=== PATIENT | female | born 1970 ===

== ENCOUNTER 2020-03-09 14:05 | Inpatient (IN) | payer OTHER, SELFPAY ==
[2020-03-09 22:51] LABS: Actual Bicarbonate (HCO3a) 25.9 mEq/L (22-28); Base Excess (BEa) 2.3 mEq/L (-2.0 to +3.0); CO2 Tension 35.4 mmHg (35.0-45.0); Calcium, Ionized (arterial) 1.38 mmol/L (1.12-1.30); Carboxyhemoglobin (COHb) 0.3 gm% (0.0-3.0); Hemoglobin (Hb) 6.9 g/dL (12.0-16.0); Potassium - ABG Lab 4.32 mmol/L (3.70-5.30); pH, Arterial 7.48 (7.35-7.45)
[2020-03-09 22:52] LABS: O2 Tension (PaO2), arterial 59.1 mmHg (80.0-100.0); Puncture Site RRA
[2020-03-09] MEDS ORDERED: Ondansetron PF 4 MG/2 ML Vial IVP PRN (23:15)
[2020-03-09] MEDS ORDERED: Ondansetron ODT 4 MG TAB PO PRN (23:15)
[2020-03-09] MEDS ORDERED: Sodium Chloride 0.9% 1,000 ML IV SCH (23:15)
--- NOTE | 2020-03-09 23:32 | PDOC.HHP ---
Hospitalist HPI - History of Present Illness abnormal labs History of Present Illness: history is limited most was obtain from transfer records, no family members were present, patient is non verbal and no previous hospitalization in this institution Case of an 50y/o female with pmhx of htn alcohol abuse drug abuse smoker who had a cva and was left with considerable disabilities including hemiplegia and tracheotomy on MV, intermediate resident who was brought to hospital after labs at the intermediate showed she had leukocytosis with renal failure and hyperkalemia. patient was sent to an ED which diagnosed patient with sepsis secondary to uti renal failure and hyperkalemia, and was transfer to this institution for further a higher level of care given the patients chronic conditions Hospitalist ROS - Review of Systems ROS unobtainable: due to mental status Hospitalist History - Past Medical History Cardiac: reports: HTN Pulmonary: reports: CVA/TIA/stroke - Past Surgical History Past Surgical History: reports: no pertinent history Other Surgical History: unable to asses - Family History Other Family History: unable to asses - Social History Smoking Status: Former smoker - Exam General Appearance: NAD, awake alert Eye: PERRL, anicteric sclera ENT: normocephalic atraumatic, no oropharyngeal lesions Neck: supple, symmetric, no JVD Heart: no murmur, no gallops, no rubs, normal peripheral pulses Heart - other findings: tachycardic Respiratory: CTAB, no wheezes, no rales Gastrointestinal: soft, non-tender, non-distended Extremities: no cyanosis, no clubbing, no edema Skin - other findings: stage 3 - 4 sacral ulcer Neurological: hemiplegia, speech deficit, vision deficit Musculoskeletal: diffuse muscle atrophy Psychiatric: not oriented Hospitalist Results - Labs Lab results: ABG pH 7.48 (7.35-7.45) H 03/09/20 22:40 ABG pCO2 35.4 mmHg (35.0-45.0) 03/09/20 22:40 ABG pO2 59.1 mmHg (80.0-100.0) L* 03/09/20 22:40 Hospitalist H&P A/P - Problem (1) Sepsis Code(s): A41.9 - SEPSIS, UNSPECIFIED ORGANISM Status: Acute (2) UTI (urinary tract infection) Status: Acute (3) Chronic respiratory failure requiring continuous mechanical ventilation through tracheostomy Code(s): J96.10 - CHRONIC RESPIRATORY FAILURE, UNSP W HYPOXIA OR HYPERCAPNIA; Z93.0 - TRACHEOSTOMY STATUS; Z99.11 - DEPENDENCE ON RESPIRATOR [VENTILATOR] STATUS Status: Acute (4) Renal failure Status: Acute (5) Hyperkalemia Code(s): E87.5 - HYPERKALEMIA Status: Acute (6) Anemia Code(s): D64.9 - ANEMIA, UNSPECIFIED Status: Acute (7) History of CVA with residual deficit Code(s): I69.30 - UNSPECIFIED SEQUELAE OF CEREBRAL INFARCTION Status: Acute (8) Hypertension Code(s): I10 - ESSENTIAL (PRIMARY) HYPERTENSION Status: Acute (9) Sacral ulcer Code(s): L98.429 - NON-PRESSURE CHRONIC ULCER OF BACK WITH UNSPECIFIED SEVERITY Status: Acute - Plan Plan: 50y/o female with stated pmhx who comes from intermediate due to renal failure w hyperkalemia and sepsis secondary to uti sepsis - leukocytosis wbc 20, with tachycardia. u/a consistent with uti - started on rocephin 2g iv daily - ivfs - lactid acid 0.9 - f/u blood and urine cultures - will get cxr to r/o other sources of infection - covid test negative renal failure - ivfs - u/a to evaluated sedimentation - nephrology consulted - renal u/s - f/u bmps and u/o hyperkalemia - no ekg changes at the moment - hospital admissions officer consulted - initial K at 7.6 was treated before transfer, will repeat and treat accordingly anemia - likely chronic and multifactorial low mcv but elevated rdw - transfuse at 7 or below - will get iron panel and occult blood hx of cva - continue secondary prophylaxis with asa and statin chronic respiratory failure on MV - adequate abgs - second facing baster consulted - prn duo nebs htn - holding medication for now in the setting of sepsis, start once patient is more stable scaral ulcer stage 3-4 - wound care consulted - ulcer prevention protocol
--- NOTE | 2020-03-09 23:51 | RAD ---
XR Chest 1 View Portable History: Sepsis Comparison: None. Findings: Tracheostomy tube tip sits at level of clavicles. Patient is rotated to the right. Patchy r ight middle lobe and lower lobe airspace opacity. Left lung is relatively clear. No acute osseous abnormality. Multiple radiopacities project over the right chest. Impression: Findings concerning for right middle lobe and lower lobe pneumonia. Follow-up after remov al of the oxygenation hardware.
[2020-03-09] MEDS ORDERED: cefTRIAXone\\ROCEPHIN 2 GM in Sodium Chloride 0.9% 100 ML IVPB SCH (23:59)
[2020-03-10 00:40] LABS: ALT (SGPT) 80 U/L (8-55); AST (SGOT) 51 U/L (5-34); Albumin 2.7 g/dL (3.5-5.0); Alkaline Phosphatase 309 U/L (40-110); Anion Gap 20 mmol/L (10-20); BUN (Urea Nitrogen) 92 mg/dL (7.0-18.7); Bilirubin, Total 0.2 mg/dL (0.2-1.2); Calc. Creatinine Clearance 18 mL/min (70-130); Carbon Dioxide 20 mmol/L (22-29); Chloride 110 mmol/L (98-107); Estimated GFR-MDRD 11; Globulin 5.8 g/dL (2.4-3.5); Glucose 66 mg/dL (70-105); Potassium 4.8 mmol/L (3.5-5.1); Protein, Total 8.5 g/dL (6.0-8.3); Sodium 145 mmol/L (136-145)
[2020-03-10 00:43] LABS: Bilirubin Negative (Negative); Blood, Urine Trace (Negative); Clarity Turbid (Clear); Glucose, Urine (Dipstick) Normal (Negative); Ketone, Urine Negative (Negative); Leukocyte 500 Leu/uL (Negative); Nitrite Negative (Negative); Protein, Urine (Dipstick) 30 mg/dL (Neg-Trace); Specific Gravity, Urine 1.008 (1.002-1.036); Squamous Epithelial 0-3 HPF (0-3); Urobilinogen Normal mg/dL (Less than 2); WBC/HPF Greater than 50 HPF (0-3)
[2020-03-10 00:44] LABS: Bacteria/HPF 1+ HPF (None Seen)
--- NOTE | 2020-03-10 02:18 | PDOC.EVN ---
Event Note - Event Note Event Note: cxr done consistent with multi lobe pneumonia, will change abx therapy to cefepime and vanc. will order mrsa swab and sputum culture
[2020-03-10 03:24] LABS: #Basophils 0.1 thou/uL (0.0-0.2); #Eosinphils 0.7 thou/uL (0.0-0.7); #Monocytes 1.2 thou/uL (0.11-0.59); #Neutrophils 12.6 thou/uL (1.40-6.50); %Basophils 0.4 % (0.0-1.0); %Eosinophils 4.2 % (0.0-10.0); %Lymphocytes 12.1 % (21.0-51.0); %Monocytes 7.4 % (0.0-10.0); Hemoglobin 7.2 g/dL (12.0-16.0); Mean Corpuscular HGB CONC 33.3 g/dL (32.0-36.0); Mean Corpuscular Hemoglobin 27.2 pg (27.0-31.0); Mean Corpuscular Volume 81.6 fL (78.0-98.0); Mean Platelet Volume 7.3 fL (7.4-10.4); Platelet Count 631 thou/uL (130-400); RBC Distribution Width 17.1 % (11.5-14.5); Red Blood Cell (RBC) Count 2.64 mill/uL (4.20-5.40); White Blood Cell (WBC) Count 16.6 thou/uL (4.8-10.8)
[2020-03-10 03:45] LABS: Iron 15 ug/dL (50-170); Iron Binding Capacity, Total 160 mcg/dL (265-497)
[2020-03-10 03:47] LABS: ALT (SGPT) 66 U/L (8-55); AST (SGOT) 40 U/L (5-34); Albumin 2.4 g/dL (3.5-5.0); Alkaline Phosphatase 262 U/L (40-110); Anion Gap 17 mmol/L (10-20); BUN (Urea Nitrogen) 89 mg/dL (7.0-18.7); Bilirubin, Total 0.2 mg/dL (0.2-1.2); Calc. Creatinine Clearance 19 mL/min (70-130); Calcium 10.5 mg/dL (7.8-10.44); Carbon Dioxide 21 mmol/L (22-29); Chloride 111 mmol/L (98-107); Estimated GFR-MDRD 12; Globulin 5.1 g/dL (2.4-3.5); Glucose 70 mg/dL (70-105); Iron 16 ug/dL (50-170); Iron Binding Capacity, Total 160 mcg/dL (265-497); Potassium 4.2 mmol/L (3.5-5.1); Protein, Total 7.5 g/dL (6.0-8.3); Sodium 145 mmol/L (136-145)
[2020-03-10 05:59] LABS: Vancomycin, Random 8.6 ug/mL (See Comment)
[2020-03-10] MEDS ORDERED: Cefepime 2 GM in Sodium Chloride 0.9% 100 ML IVPB SCH ×2 (06:00→08:49)
[2020-03-10] MEDS ORDERED: Vancomycin HCl 750 MG in Sodium Chloride 0.9% 250 ML 250 ML IVPB SCH (06:30)
[2020-03-10] MEDS ORDERED: Dextrose 5% in Water 1,000 ML IV SCH (09:00)
--- NOTE | 2020-03-10 09:14 | ULT ---
BILATERAL RENAL ULTRASOUND: HISTORY: Acute renal insufficiency. FINDINGS: The right kidney measures 11.3 cm in length and the left kidney measures 12.1 cm in length. Minimal bilateral hydronephrosis is seen. No masses or shadowing calculi are noted. There is a Luong cathet er in the urinary bladder. IMPRESSION: Minimal bilateral hydronephrosis. POS: KALYANI
[2020-03-10] MEDS ORDERED: Sodium Bicarbonate 50 MEQ in Sodium Chloride 0.45% 1,000 ML IV SCH (10:00)
[2020-03-10] MEDS: Enoxaparin Sodium 30 MG/0.3 ML SYRINGE SC SCH (11:52)
[2020-03-10 12:46] LABS: Creatinine, Urine 41.22 mg/dL (47-110)
[2020-03-10] MEDS ORDERED: CEFEPIME IVPB PRN (13:56)
--- NOTE | 2020-03-10 15:16 | PDOC.HOSPP ---
- Subjective Encounter Date: 03/10/20 Encounter Time: 14:00 Subjective: awake, not oriented, is not in distress has trach and is on vent - Objective Vital Signs & Weight: Vital Signs (12 hours) Pulse Resp BP 03/10/20 14:54 113 H 121/67 03/10/20 14:00 24 H 03/10/20 12:00 28 H 03/10/20 10:47 124 H 128/76 03/10/20 10:00 25 H 03/10/20 08:47 122 H 123/73 03/10/20 08:00 24 H 03/10/20 06:00 17 03/10/20 04:00 18 Weight Admit Weight 154 lb Weight 154 lb 15.759 oz Most Recent Monitor Data Heart Rate from ECG 119 NIBP 126/75 NIBP BP-Mean 92 Respiration from ECG 14 SpO2 100 I&O: 03/09/20 03/10/20 03/11/20 06:59 06:59 06:59 Intake Total 665 791 Output Total 6994 1625 Balance -5578 -300 Result Diagrams: 03/10/20 03:11 03/10/20 03:11 Additional Labs: Accuchecks 03/10/20 09:43 POC Glucose 116 H Hospitalist ROS - Medication Medications: Active Medications Generic Name Dose Route Start Last Admin Trade Name Chatoq PRN Reason Stop Dose Admin Enoxaparin Sodium 30 mg 03/10/20 09:00 03/10/20 11:52 Lovenox SC 30 mg 0900 GEOVANNA Administration Sodium Bicarbonate 50 meq/ 1,050 mls @ 100 mls/hr 03/10/20 10:00 03/10/20 11: 54 Sodium Chloride IV 03/10/20 22:00 1,050 mls ONE GEOVANNA Administration - Exam General Appearance: ill appearing Eye: anicteric sclera ENT: no oropharyngeal lesions Neck: no JVD Neck - other findings: trach+ Heart: RRR, no gallops Respiratory: no wheezes, rhonchi Gastrointestinal: soft, non-tender, non-distended, normal bowel sounds Gastrointestinal - other findings: peg+ Extremities - other findings: contractures of all extremities Neurological - other findings: has left hemiplegia, but has contractures of all 4 limbs with functional qu Hosp A/P (1) Acute and chronic respiratory failure ([id number]) Code(s): J96.20 - ACUTE AND CHR RESP FAILURE, UNSP W HYPOXIA OR HYPERCAPNIA Status: Acute Qualifiers: Respiratory failure complication: hypoxia and hypercapnia Qualified Code(s) : J96.21 - Acute and chronic respiratory failure with hypoxia; J96.22 - Acute and chronic respiratory failure with hypercapnia (2) SHANNEN (acute kidney injury) Code(s): N17.9 - ACUTE KIDNEY FAILURE, UNSPECIFIED Status: Acute (3) Anemia Code(s): D64.9 - ANEMIA, UNSPECIFIED Status: Chronic (4) History of CVA with residual deficit Code(s): I69.30 - UNSPECIFIED SEQUELAE OF CEREBRAL INFARCTION Status: Chronic (5) Hyperkalemia Code(s): E87.5 - HYPERKALEMIA Status: Resolved (6) Hypertension Code(s): I10 - ESSENTIAL (PRIMARY) HYPERTENSION Status: Chronic Qualifiers: Hypertension type: essential hypertension Qualified Code(s): I10 - Essential (primary) hypertension (7) Sacral ulcer Code(s): L98.429 - NON-PRESSURE CHRONIC ULCER OF BACK WITH UNSPECIFIED SEVERITY Status: Chronic Plan: stage 4 present on admission (8) Sepsis Code(s): A41.9 - SEPSIS, UNSPECIFIED ORGANISM Status: Acute Qualifiers: Sepsis type: sepsis due to unspecified organism Sepsis acute organ dysfunction status: with acute organ dysfunction Severe sepsis acute organ dysfunction type: acute renal failure Severe sepsis shock status: without septic shock (9) UTI (urinary tract infection) Status: Acute Qualifiers: Urinary tract infection type: acute cystitis Hematuria presence: without hematuria Qualified Code(s): N30.00 - Acute cystitis without hematuria (10) Functional quadriplegia Code(s): R53.2 - FUNCTIONAL QUADRIPLEGIA Status: Chronic - Plan Has multiple medical issues in addition to being bed bound, stage 4 sacral decubitus, chronic trach, 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
--- NOTE | 2020-03-10 18:04 | CON ---
DATE OF CONSULTATION: 03/10/2020 SERVICE: Nephrology. REASON FOR CONSULTATION: Renal failure. REQUESTING PHYSICIAN: Dr. Santos. HISTORY OF PRESENT ILLNESS: A 50-year-old female with known history of prior CVA, associated with residual left-sided hemiplegia as well as chronic respiratory failure requiring tracheostomy and mechanical ventilation, [facility] resident, who was brought to the hospital after labs drawn at the [facility] showed elevated potassium and creatinine as well as leukocytosis. The patient was subsequently taken to the ED where diagnosis of sepsis secondary to urinary tract infection as well as acute renal failure and hyperkalemia was made. The patient was noted to have a potassium of 7.2 and was treated in the ED before transfer over here. Of note, the patient is nonverbal and was unable to provide any history. Above history was obtained from review of medical record. Nephrology consult was requested for management of renal failure. Baseline creatinine is unknown at this time. PAST MEDICAL HISTORY: 1. Hypertension. 2. Prior CVA. 3. Left hemiparesis. 4. Chronic respiratory failure status post tracheostomy and on mechanical ventilation. PAST SURGICAL HISTORY: 1. Tracheostomy creation. 2. PEG tube placement. FAMILY HISTORY: Unable to assess due to the patient's condition. SOCIAL HISTORY: The patient used to smoke and drink alcohol, but not currently. ALLERGIES: NO KNOWN DRUG ALLERGY REPORTED. PRIOR TO HOSPITAL MEDICATION: 1. Acetaminophen 325 p.o. every 4 hours p.r.n. 2. Zofran ODT 4 mg q.4 p.r.n. 3. Hydrocodone/acetaminophen 10/325 one tablet q.6 p.r.n. 4. Ipratropium bromide inhalation 0.5 mg nebulization q.6 h. 5. Acetylcysteine 400 mg q.8 h. 6. Ascorbic acid 500 mg p.o. b.i.d. 7. Aspirin 81 mg p.o. daily. 8. Lipitor 40 mg p.o. daily at bedtime. 9. Pepcid 20 mg p.o. b.i.d. 10. Ferrous sulfate 325 mg p.o. daily. 11. Heparin 5000 units subcutaneously b.i.d. 12. Insulin sliding scale b.i.d. 13. Lisinopril 2.5 mg p.o. b.i.d. 14. Metoprolol tartrate 50 mg p.o. b.i.d. 15. Multivitamin with minerals one tablet p.o. daily. 16. Protein supplement 30 mL p.o. daily. REVIEW OF SYSTEMS: Could not be performed due to the patient's condition. PHYSICAL EXAMINATION: VITAL SIGNS: Temperature 99.1, pulse 120, respiratory rate 18, SpO2 of 100% on 50% FiO2, and blood pressure is 157/76. I and O in the last 24 hours showed total intake of 665 with total output of 3150. GENERAL: Chronically ill-looking, middle-aged female, in no obvious distress. Afebrile. Anicteric. Acyanotic. HEENT: Normocephalic and atraumatic. Oral mucosa is dry with chapped lips. NECK: Tracheostomy noted, connected to ventilator. CARDIOVASCULAR: Regular rhythm and rate, but tachycardic. RESPIRATORY: Ventilator transmitted breath sounds heard in all lung zones. GI: Full, soft with normal bowel sounds. Gastric tube is noted in place. UROGENITAL: Luong catheter is in place. MUSCULOSKELETAL: Fixed flexion deformity of the left hand and upper limb noted. Atrophy of both lower extremities with some foot deformity noted. Mild edema of both feet and leg noted as well. No erythema appreciated. SUPERVISOR LIME: The patient is awake, but non-conversational. Left hemiplegia with fixed flexion deformity noted. DIAGNOSTIC DATA: CBC today showed WBC count of 16.6, hemoglobin of 7.2, MCV of 81.6, and platelets of 631. Chemistry today showed sodium 145, potassium 4.2, chloride 111, CO2 of 21, BUN 89, creatinine 3.96, glucose of 970, and calcium 10.5. Total bilirubin 0.2, AST 40, ALT 66, alkaline phosphatase 262, total protein 7.5, albumin 2.4, and globulin 5.1. Procalcitonin is 50. Iron chemistry showed serum iron of 15, TIBC of 160 with iron saturation of 9%. Urinalysis performed yesterday on 03/09 showed light yellow turbid urine with pH of 7.0, specific gravity of 1.008, urine protein of 30, normal glucose, negative ketone, trace blood, negative nitrite, bilirubin. Leukocyte esterase is 500. Microscopy showed 7 to 10 rbc and greater than 50 wbc with 1+ protein. Chest x-ray performed on 03/09 showed finding concerning for right middle lobe and lower lobe pneumonia. ASSESSMENT: 1. Acute renal failure: Most likely due to hemodynamic factors related to intravascular contraction as well as sepsis. Creatinine is beginning to trend downwards with IV fluid therapy. 2. Sepsis. 3. Dehydration with hypernatremia. 4. Hyponatremia: Due to free water deficit. 5. Polyuria is a concern given total output of more than 3000 in less than 12 hours. 6. Suspected polyuria. 7. Presumed urinary tract infection. 8. Hyperkalemia: Resolved. 9. Acute transaminitis: Most likely due to sepsis. 10. Prior cerebrovascular accident with chronic respiratory failure and left hemiplegia, requiring tracheostomy and percutaneous endoscopic gastrostomy tube. 11. Metabolic acidosis. PLAN: 1. We will start IV fluid therapy with sodium bicarb containing fluid. 2. We will also increase free water flushes via the PEG tube to correct hypernatremia. 3. We will also get urine electrolytes as well as urine protein creatinine ratio. 4. We will monitor input and output to ascertain otherwise presence of polyuria. 5. Agree with tube feed placement. 6. Antibiotics for possible pneumonia as well as urinary tract infection as per primary attending. 7. Further treatment to follow depending on hospital course. 8. We will also get renal ultrasound. Job ID: [id number]
--- NOTE | 2020-03-10 19:12 | CON ---
DATE OF CONSULTATION: 03/10/2020 HISTORY OF PRESENT ILLNESS: Kait Solis is a 50-year-old female. Apparently , she had a cerebrovascular accident at some point. She was transferred here from [place]. She is nonverbal. She has a tracheostomy. The nurses tell me she is ventilator dependent, but I do not get that from the admission notes. She does have a fairly massive decubitus ulcer on presentation. She has a history of drug and alcohol abuse. FAMILY HISTORY: Unknown. SOCIAL HISTORY: Unknown. PHYSICAL EXAMINATION: GENERAL: She has wandering eye movements, does not make any prolonged eye contact. VITAL SIGNS: Heart rate in the 120s, respiratory rate in the teens, blood pressure is 128/76. NECK: She has tracheostomy in place. LUNGS: Remarkable for coarse equal breath sounds. She is not wheezing. HEART: Regular rhythm. ABDOMEN: Soft. EXTREMITIES: Without asymmetry or edema. LABORATORY DATA: White count 16.6, hemoglobin 7.2, platelets 631, MCV is 81. 1 unit of packed cells was ordered. Sodium 145, potassium 4.2, chloride 111, bicarb 21, BUN 89, creatinine 3.96. Urinalysis was remarkable for 7 to 10 red cells, greater than 50 white cells. I suspect she has a chronic indwelling Luong. Blood gas showed a pH 7.48, pCO2 of , pO2 of 59 with a mechanical rate of 15. Mechanical rate has been turned down. IMPRESSION: [id number] kidney disease with hypotension apparently on presentation. Unless there is positive blood cultures that could call back from [place], I would think it would be more likely that she is intravascularly volume depleted. I suspect we will see gradual improvement of renal function with hydration. Renal ultrasound was ordered by the organ pipe voicer, which did not show small kidneys. There was minimal bilateral hydronephrosis, which makes me wonder whether or not a Luong has been plugged up. There is no other reason for a 50-year-old female who has hydronephrosis when renal stones are not seen. Noncontrast CT would answer that question, but I doubt she has bilateral ureteral calculi. We will decrease ventilatory support while she is here. We will try to get more information. It is extremely difficult to take care of someone in this situation with such limited information. Critical care time 30 min. Job ID: [id number] MTDD
[2020-03-10] MEDS: Acetaminophen 325 MG TAB PO PRN (21:24)
[2020-03-11 05:51] LABS: Vancomycin, Random 14.3 ug/mL (See Comment)
[2020-03-11] MEDS ORDERED: Vancomycin 1 GM in Premix Bag 1 BAG IVPB SCH ×2 (06:00→06:15)
[2020-03-11 08:04] LABS: Hemoglobin 7.6 g/dL (12.0-16.0); Mean Corpuscular HGB CONC 33.7 g/dL (32.0-36.0); Mean Corpuscular Hemoglobin 28.2 pg (27.0-31.0); Mean Corpuscular Volume 83.6 fL (78.0-98.0); Mean Platelet Volume 6.7 fL (7.4-10.4); Platelet Count 631 thou/uL (130-400); RBC Distribution Width 17.3 % (11.5-14.5); Red Blood Cell (RBC) Count 2.68 mill/uL (4.20-5.40); White Blood Cell (WBC) Count 17.9 thou/uL (4.8-10.8)
[2020-03-11] MEDS: Enoxaparin Sodium 30 MG/0.3 ML SYRINGE SC SCH (08:12)
[2020-03-11] MEDS: Cefepime 1 GM in Sodium Chloride 0.9% 100 ML IVPB SCH ×2 (08:12→20:13)
[2020-03-11 08:27] LABS: Phosphorus 4.2 mg/dL (2.3-4.7)
[2020-03-11 08:34] LABS: ALT (SGPT) 48 U/L (8-55); AST (SGOT) 23 U/L (5-34); Albumin 2.6 g/dL (3.5-5.0); Alkaline Phosphatase 227 U/L (40-110); Anion Gap 14 mmol/L (10-20); BUN (Urea Nitrogen) 48 mg/dL (7.0-18.7); Bilirubin, Total Less than 0.2 mg/dL (0.2-1.2); Calc. Creatinine Clearance 47 mL/min (70-130); Calcium 10.3 mg/dL (7.8-10.44); Carbon Dioxide 24 mmol/L (22-29); Chloride 115 mmol/L (98-107); Estimated GFR-MDRD 32; Globulin 5.3 g/dL (2.4-3.5); Glucose 105 mg/dL (70-105); Magnesium 1.2 mg/dL (1.6-2.6); Potassium 3.2 mmol/L (3.5-5.1); Protein, Total 7.9 g/dL (6.0-8.3); Sodium 150 mmol/L (136-145)
--- NOTE | 2020-03-11 10:02 | PRG ---
DATE OF SERVICE: 03/11/2020 SUBJECTIVE: Kait Solis remains mechanically ventilated. With pressure support, her tidal volumes are in the 250 to 300 mL range. OBJECTIVE: VITAL SIGNS: Respiratory rates in low 30s. LUNGS: Remarkable for coarse and equal breath sounds. HEART: Regular rhythm. ABDOMEN: Soft. LABORATORY DATA: White count 17.9, hemoglobin 7.6, she will receive another unit of packed cells, platelets 631. Sodium 150, potassium 3.2, chloride 115, bicarb 24 , BUN 48, and creatinine is down to 1.69 from 4.29. IMPRESSION: 1. Severe intravascular volume depletion. She will be switched to D5 today. Her renal function is returning towards her baseline. 2. Hyperosmolar state secondary to hyperchloremia, hypernatremia and intravascular volume depletion. D5W at 100 mL an hour has been ordered. 3. Hypoalbuminemia. 4. Very large decubitus ulcer. Surgery will be asked to look at this. Obviously, this is a chronic problem. 5. History of central nervous system disaster, leading her bedridden with a trach and PEG in place. I was told she is chronically ventilated, but I would doubt that. We do need more medical records. We will continue with supportive care. Critical care time was 35 min. Job ID: [id number] MTDD
[2020-03-11] MEDS ORDERED: Magnesium Sulfate 4 GM in Sodium Chloride 0.9% 250 ML 250 ML IVPB SCH (10:30)
[2020-03-11] MEDS: Acetaminophen 650 MG Suppository PR PRN (11:01)
[2020-03-11] MEDS: Dextrose 5% in Water 1,000 ML IV SCH ×2 (11:02→23:35)
--- NOTE | 2020-03-11 16:01 | PRG ---
DATE OF SERVICE: 03/11/2020 SERVICE: Nephrology. SUBJECTIVE: A 50-year-old female, [facility] resident with CVA requiring craniectomy as well as tracheostomy and PEG tube placement about 3 months ago, now admitted due to worsening renal function and hyperkalemia, for which she has been seen by Nephrology. The patient also was found to have hypernatremia as well as sepsis. Also was found to have mild hydronephrosis, hence required Luong catheter placement. The patient remained on conversational and mechanically ventilated. Having some fever intermittently. OBJECTIVE: VITAL SIGNS: Temperature 100.9, heart rate 132, respiratory rate , SpO2 of 100% on 50% FiO2, blood pressure is 128/109. I and O in the last 24 hours showed total intake of 3542 with total output of 3595. GENERAL: Comfortable middle-aged female, in no obvious distress. HEENT: Left frontoparietal craniectomy noted. Oral mucosa is moist. NECK: No JVD. Tracheostomy noted, connected to ventilator. RESPIRATORY: Ventilator transmitted breath sounds noted. The patient is tachypneic. GI: Full, soft with normal bowel sounds. Gastric tube noted. UROGENITAL: Luong catheter is in place draining urine. EXTREMITIES: No obvious edema of the extremities noted. Fixed flexion deformity of the left upper limb and hand noted. INDUSTRIAL ENGINEERING TECHNOLOGIST: The patient is awake, but non-conversational. DIAGNOSTIC DATA: CBC showed WBC count of 17.9, hemoglobin of 7.6, MCV of 83.6, platelet of 631. Chemistry showed sodium 150, potassium 3.2, chloride 115, CO2 of 24, BUN 48, creatinine 1.69, glucose 105, calcium 10.3, magnesium 1.2, phosphorus 4.2, total bilirubin less than 2, AST 23, ALT 48, alkaline phosphatase 227, total protein 7.9, albumin 2.6. Urine osmolality is 423 while serum osmolality was 328. ASSESSMENT: 1. Acute kidney injury: Multifactorial from obstructive uropathy as well as a hemodynamic factors related to sepsis and severe dehydration. Renal function has improved with creatinine trending down from 4.29 on admission to 1.69 today. 2. Metabolic acidosis, markedly improved, due to sepsis as well as dehydration and then acute kidney injury, improving with alkali therapy. 3. Hypernatremia: This seems to be multifactorial from inadequate free water intake, to excessive losses in the kidney. Post obstructive diuresis is a concern as well as diabetic insipidus. The patient has had a brain injury requiring a craniectomy. 4. Polyuria: Etiology is unclear. Central diabetic insipidus and/or nephrogenic insipidus related to acute kidney injury with possible contribution from postobstructive diuresis. The patient made more than 3 L of urine in the last two days. Urine osmolality of 423 in the phase of serum osmolality of 328, though inadequate that showed evidence of some ADH activity. Partial diabetic insipidus cannot be ruled out. Postoperative diuresis may be contributory. 5. Severe hypomagnesemia: This can also lead to diabetic insipidus. 6. Hypokalemia, most likely related to hypomagnesemia. This can also lead to diabetic insipidus. 7. Marked thrombocytopenia: Most likely related to iron deficiency and sepsis. 8. Protein-calorie malnutrition with hypoalbuminemia. PLAN: 1. We will increase free water intake via the NG tube. We will also add free water in the form of IV. The patient is now on 5% dextrose. 2. We will replete serum potassium with potassium chloride. 3. We will also repeat replete serum magnesium with 4 g of magnesium sulfate. 4. We will continue to monitor intake and output. 5. We will recheck BMP later this afternoon with a view to starting some crystalloid to prevent worsening dehydration and renal failure. Antibiotic therapy for sepsis as per primary attending. Job ID: [id number]
[2020-03-11 16:33] LABS: Chloride 91 mmol/L (98-107)
[2020-03-11 16:36] LABS: Anion Gap 9 mmol/L (10-20); Carbon Dioxide 20 mmol/L (22-29)
[2020-03-11 16:37] LABS: Calc. Creatinine Clearance 48 mL/min (70-130); Estimated GFR-MDRD 33
[2020-03-11 16:38] LABS: BUN (Urea Nitrogen) 29 mg/dL (7.0-18.7)
[2020-03-11 17:59] LABS: Glucose 125 mg/dL (70-105); Potassium 4.3 mmol/L (3.5-5.1); Sodium 150 mmol/L (136-145)
--- NOTE | 2020-03-11 18:23 | PDOC.HOSPP ---
- Subjective Encounter Date: 03/11/20 Encounter Time: 11:35 Subjective: awake, not oriented, not in distress is on vent - Objective Vital Signs & Weight: Vital Signs (12 hours) Pulse Resp BP Pulse Ox 03/11/20 16:00 28 H 03/11/20 15:21 110 H 136/78 03/11/20 14:00 30 H 03/11/20 12:00 29 H 03/11/20 10:54 123 H 151/99 H 03/11/20 10:00 38 H 03/11/20 08:00 44 H 92 L 03/11/20 07:58 124 H Weight Admit Weight 154 lb Weight 160 lb 0.889 oz Most Recent Monitor Data Heart Rate from ECG 105 NIBP 148/102 NIBP BP-Mean 117 Respiration from ECG 31 SpO2 100 I&O: 03/10/20 03/11/20 03/12/20 06:59 06:59 06:59 Intake Total 665 3542 951 Output Total 0800 3595 1355 Balance -2485 -53 -404 Result Diagrams: 03/11/20 07:50 03/11/20 16:10 Hospitalist ROS - Medication Medications: Active Medications Generic Name Dose Route Start Last Admin Trade Name Freq PRN Reason Stop Dose Admin Acetaminophen 650 mg 03/09/20 23:15 03/10/20 21:24 Tylenol PO 650 mg Q4H PRN Administration Headache/Fever/Mild Pain (1-3) Acetaminophen 650 mg 03/09/20 23:15 03/11/20 11:01 Tylenol NH 650 mg Q4H PRN Administration Headache/Fever/Mild Pain (1-3) Enoxaparin Sodium 30 mg 03/10/20 09:00 03/11/20 08:12 Lovenox SC 30 mg 0900 GEOVANNA Administration Cefepime HCl 1 gm/ Sodium 100 mls @ 200 mls/hr 03/11/20 09:00 03/11/20 08:12 Chloride IVPB 100 mls Q12HR GEOVANNA Administration Dextrose/Water 1,000 mls @ 100 mls/hr 03/11/20 11:00 03/11/20 11:02 D5w IV 1,000 mls .Q10H GEOVANNA Administration - Exam General Appearance: ill appearing Eye: PERRL, anicteric sclera ENT: no oropharyngeal lesions, dry oral mucosa Neck: no JVD Neck - other findings: trach+ Heart: RRR, no murmur Respiratory: no wheezes, no rales Gastrointestinal: soft, non-tender, normal bowel sounds Gastrointestinal - other findings: peg+ Extremities - other findings: contractures of all extre, b/l foot drop Neurological: hemiplegia Hosp A/P (1) Acute and chronic respiratory failure ([id number]) Code(s): J96.20 - ACUTE AND CHR RESP FAILURE, UNSP W HYPOXIA OR HYPERCAPNIA Status: Acute Qualifiers: Respiratory failure complication: hypoxia and hypercapnia Qualified Code(s) : J96.21 - Acute and chronic respiratory failure with hypoxia; J96.22 - Acute and chronic respiratory failure with hypercapnia (2) SHANNEN (acute kidney injury) Code(s): N17.9 - ACUTE KIDNEY FAILURE, UNSPECIFIED Status: Acute (3) Anemia Code(s): D64.9 - ANEMIA, UNSPECIFIED Status: Chronic (4) History of CVA with residual deficit Code(s): I69.30 - UNSPECIFIED SEQUELAE OF CEREBRAL INFARCTION Status: Chronic (5) Hyperkalemia Code(s): E87.5 - HYPERKALEMIA Status: Resolved (6) Hypertension Code(s): I10 - ESSENTIAL (PRIMARY) HYPERTENSION Status: Chronic Qualifiers: Hypertension type: essential hypertension Qualified Code(s): I10 - Essential (primary) hypertension (7) Sacral ulcer Code(s): L98.429 - NON-PRESSURE CHRONIC ULCER OF BACK WITH UNSPECIFIED SEVERITY Status: Chronic (8) Sepsis Code(s): A41.9 - SEPSIS, UNSPECIFIED ORGANISM Status: Acute Qualifiers: Sepsis type: sepsis due to unspecified organism Sepsis acute organ dysfunction status: with acute organ dysfunction Severe sepsis acute organ dysfunction type: acute renal failure Severe sepsis shock status: without septic shock (9) UTI (urinary tract infection) Status: Acute Qualifiers: Urinary tract infection type: acute cystitis Hematuria presence: without hematuria Qualified Code(s): N30.00 - Acute cystitis without hematuria (10) Functional quadriplegia Code(s): R53.2 - FUNCTIONAL QUADRIPLEGIA Status: Chronic (11) Severe protein-calorie malnutrition Code(s): E43 - UNSPECIFIED SEVERE PROTEIN-CALORIE MALNUTRITION Status: Acute (12) FTT (failure to thrive) in adult Status: Acute - Plan Has multiple medical issues in addition to being bed bound, stage 4 sacral decubitus, chronic trach, 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 CM for help with transfer back to snf likely in 24 -36hrs if cleared by . D/w her pcp ([phone]), I have texted his PA NOA Hogan [phone] (will try to get more history from the PA as pcp is not aware of full details). Per the brother, sustained massive cva in November of this year and had likely decompression done and since then has been on ventilator despite multiple attempts at weaning (he even mentions that she is on cpap setting for the most part), she also got rehospitalized 2 more times for small cva's. She has started to open her eyes from 1 week now. await final culture results poor prognosis
[2020-03-12 04:43] LABS: ALT (SGPT) 35 U/L (8-55); AST (SGOT) 19 U/L (5-34); Albumin 2.3 g/dL (3.5-5.0); Alkaline Phosphatase 192 U/L (40-110); Anion Gap 9 mmol/L (10-20); BUN (Urea Nitrogen) 27 mg/dL (7.0-18.7); Bilirubin, Total 0.2 mg/dL (0.2-1.2); Calc. Creatinine Clearance 83 mL/min (70-130); Calcium 9.6 mg/dL (7.8-10.44); Carbon Dioxide 27 mmol/L (22-29); Chloride 108 mmol/L (98-107); Estimated GFR-MDRD 63; Glucose 121 mg/dL (70-105); Potassium 3.1 mmol/L (3.5-5.1); Protein, Total 7.3 g/dL (6.0-8.3); Sodium 141 mmol/L (136-145)
[2020-03-12 05:12] LABS: Band 13 % (5-11); Eosinophils 4 % (0-10); Hemoglobin 7.5 g/dL (12.0-16.0); Lymphocytes 12 % (21-51); MDiff Complete? YES; Mean Corpuscular HGB CONC 32.6 g/dL (32.0-36.0); Mean Corpuscular Hemoglobin 27.5 pg (27.0-31.0); Mean Corpuscular Volume 84.2 fL (78.0-98.0); Mean Platelet Volume 6.8 fL (7.4-10.4); Monocytes 3 % (0-10); Neutrophil 68 % (42-75); Platelet Count 542 thou/uL (130-400); RBC Distribution Width 16.9 % (11.5-14.5); Red Blood Cell (RBC) Count 2.74 mill/uL (4.20-5.40); White Blood Cell (WBC) Count 16.7 thou/uL (4.8-10.8)
[2020-03-12] MEDS: Vancomycin 1 GM in Premix Bag 1 BAG IVPB SCH (05:34)
[2020-03-12] MEDS: Dextrose 5% in Water 1,000 ML IV SCH ×2 (05:40→06:12)
[2020-03-12] MEDS: Acetaminophen 650 MG Suppository PR PRN (06:01)
--- NOTE | 2020-03-12 07:47 | RAD ---
PORTABLE CHEST: DATE; 03/12/2020. PROVIDED CLINICAL HISTORY: Respiratory insufficiency. FINDINGS: Comparison 03/09/2020. Cardiac silhouette now appears enlarged. Some of this may be projectional. I nterval development of diffuse right hemithoracic airspace disease and probable patchy left perihilar airspace disease. No pleural fluid or pneumothorax apparent. Tracheostomy appliance is again seen in similar position. IMPRESSION: Development of conspicuous right and subtle left airspace disease. POS: RAMIREZ
[2020-03-12] MEDS: Enoxaparin Sodium 30 MG/0.3 ML SYRINGE SC SCH (08:02)
[2020-03-12] MEDS: Cefepime 1 GM in Sodium Chloride 0.9% 100 ML IVPB SCH ×2 (08:05→19:59)
[2020-03-12] MEDS ORDERED: Dextrose 5% in Water 1,000 ML IV SCH (08:34)
--- NOTE | 2020-03-12 11:30 | PRG ---
DATE OF SERVICE: 03/12/2020 SERVICE: Nephrology. SUBJECTIVE: A 50-year-old female with prior CVA associated with chronic respiratory failure requiring trach and PEG, who was admitted due to abnormal labs of elevated creatinine, hyperkalemia, and others. The patient had developed tachycardia, tachypnea, and fever yesterday, but that has subsided today. She looks more comfortable. The patient is non-conversational, but regrets. OBJECTIVE: VITAL SIGNS: Temperature 99.1, pulse 85, respiratory rate 25, SpO2 of 100%, blood pressure is 129/85. I and O in the last 24 hours show total intake of 6909 with total output of 2130. GENERAL: Comfortable middle-aged female, in no obvious distress. The patient is non-conversational. HEENT: Left craniectomy noted. Oral mucosa is moist. NECK: Tracheostomy noted. No JVD appreciated. CARDIOVASCULAR: Regular rhythm and rate with normal heart sounds 1 and 2. RESPIRATORY: Fair air entry bilaterally with scattered transmitted breath sounds. The patient is on the ventilator. GI: Full, soft, and nondistended with normal bowel sounds. Gastric tube noted. UROGENITAL: Luong catheter is in place. MUSCULOSKELETAL: She has flexion deformity of the upper limbs noted, especially on the left side. Quadriparesis also noted. No edema appreciated. Diffuse muscular atrophy noted. CHEMICAL HANDLER: The patient is awake. She regrets, but non-conversational. DIAGNOSTIC DATA: CBC showed WBC count of 16.7, hemoglobin of 7.5, MCV of 84.2, platelet of 542. Chemistry showed sodium 141, potassium 3.1, chloride 108, CO2 of 27, BUN 27, creatinine 0.95, glucose 121, calcium 9.6. Magnesium is 1.7. Total bilirubin is 0.2, AST 19, ALT 35, alkaline phosphatase 192, total protein 7.3, albumin 2.3. Sputum culture grew gram-negative, which is thought to be moderate normal respiratory lyla. Urine culture grew Proteus mirabilis. ASSESSMENT: 1. Acute kidney injury: Seems to be due to hemodynamic factors related to sepsis and volume contraction. Contribution from obstructive uropathy cannot be ruled out. Markedly improved with creatinine down to 0.95. 2. Presume obstructive uropathy: Relieved with insertion of urinary catheter. The patient with quadriparesis from prior stroke is at increased risk of neurogenic bladder. Ultrasound performed after more than 24 hours of admission showed mild bilateral hydronephrosis with Luong catheter in the bladder. This is suggestive of resolving bladder dilatation with mild hydronephrosis. 3. Hypokalemia: Due to poor intake and GI and losses. 4. Hypernatremia: Due to free water deficit. Resolved with aggressive IV and gastric free water provision. 5. Sepsis: Improved. 6. Chronic respiratory failure, on ventilator via tracheostomy. 7. Decubitus ulcer. PLAN: 1. We will discontinue dextrose infusion in view of resolved hypernatremia. We will, however, continue to provide free water via the gastric tube. That was actually escalated to 300 mL every 2 hours. We will continue same and repeat BMP in 6 hours and adjust treatment as indicated. 2. We will replete serum potassium with potassium chloride. 3. We will also start magnesium supplementation. 4. Antibiotics and other treatment as per primary attending. 5. The patient can be discharged from Nephrology point of view if deemed stable for discharge. We will continue to follow and adjust treatment if the patient is still hospitalized. Job ID: [id number]
--- NOTE | 2020-03-12 13:12 | PRG ---
DATE OF SERVICE: 03/12/2020 Kait Solis has her eyes open. She is not distressed. With decreased ventilatory support, she became tachypneic. With increasing her pressure support to 15, her tachypnea went away yesterday as did her tachycardia. Respiratory rates in the 20s, FiO2 is 40, heart rate in the 70s, blood pressure 162/99. Intake and outputs positive 4779. Her PEG volume replacement was increased today, but I believe that this is too much volume replacement for a PEG feeding in somebody that is supine and unable to protect her airway adequately. This totaled almost 3600 mL per day. I have continue with her IV fluids for now. Her tube feeds and water supplements can continue through her PEG, but at a lower rate in my opinion. Overall, she appears to be stable for transfer back to the [facility], where she has been residing. White count 16.7, hemoglobin 7.5, platelets 542. Creatinine is down to 0.95, which is likely close to her baseline. Potassium is 3.1. Her decubitus ulcer is not felt it needs surgery per Wound Care. She is stable for transfer back to her hospital. Critical care time, 30 minutes. Job ID: [id number]
--- NOTE | 2020-03-12 13:56 | PDOC.HOSPP ---
- Subjective Encounter Date: 03/12/20 Encounter Time: 10:10 Subjective: awakens to touch, not oriented is not in distress - Objective Vital Signs & Weight: Vital Signs (12 hours) Pulse Resp BP Pulse Ox 03/12/20 12:00 22 H 03/12/20 10:43 74 03/12/20 10:00 30 H 03/12/20 08:25 88 155/97 H 03/12/20 08:00 20 98 03/12/20 06:00 21 H 03/12/20 04:00 24 H 03/12/20 03:23 90 123/78 03/12/20 02:00 34 H Weight Admit Weight 154 lb Weight 161 lb 2.526 oz Most Recent Monitor Data Heart Rate from ECG 87 NIBP 150/104 NIBP BP-Mean 119 Respiration from ECG 25 SpO2 100 I&O: 03/11/20 03/12/20 03/13/20 06:59 06:59 06:59 Intake Total 3542 6909 90 Output Total 3590 2130 415 Balance -53 4779 -325 Result Diagrams: 03/12/20 03:53 03/12/20 03:53 Hospitalist ROS - Medication Medications: Active Medications Generic Name Dose Route Start Last Admin Trade Name Freq PRN Reason Stop Dose Admin Acetaminophen 650 mg 03/09/20 23:15 03/10/20 21:24 Tylenol PO 650 mg Q4H PRN Administration Headache/Fever/Mild Pain (1-3) Acetaminophen 650 mg 03/09/20 23:15 03/12/20 06:01 Tylenol [place] 650 mg Q4H PRN Administration Headache/Fever/Mild Pain (1-3) Enoxaparin Sodium 30 mg 03/10/20 09:00 03/12/20 08:02 Lovenox SC 30 mg 0900 GEOVANNA Administration Cefepime HCl 1 gm/ Sodium 100 mls @ 200 mls/hr 03/11/20 09:00 03/12/20 08:05 Chloride IVPB 100 mls Q12HR GEOVANNA Administration Vancomycin HCl 1 gm/ Device 200 mls @ 200 mls/hr 03/12/20 06:00 03/12/20 05: 34 IVPB 200 mls 0600 GEOVANNA Administration Potassium Chloride 40 meq 03/12/20 06:15 03/12/20 12:00 Klor-Con PER TUBE 03/12/20 18:16 40 meq Q6H GEOVANNA Administration - Exam General Appearance: ill appearing Eye: PERRL, anicteric sclera ENT: no oropharyngeal lesions, dry oral mucosa Neck: supple, no JVD Neck - other findings: trach Heart: RRR, no murmur Respiratory: no wheezes, no rales, rhonchi Gastrointestinal: soft, non-tender, non-distended, normal bowel sounds Gastrointestinal - other findings: peg+ Extremities: no edema Extremities - other findings: b/l foot drop with all limb contractures Hosp A/P (1) Acute and chronic respiratory failure ([id number]) Code(s): J96.20 - ACUTE AND CHR RESP FAILURE, UNSP W HYPOXIA OR HYPERCAPNIA Status: Acute Qualifiers: Respiratory failure complication: hypoxia and hypercapnia Qualified Code(s) : J96.21 - Acute and chronic respiratory failure with hypoxia; J96.22 - Acute and chronic respiratory failure with hypercapnia (2) SHANNEN (acute kidney injury) Code(s): N17.9 - ACUTE KIDNEY FAILURE, UNSPECIFIED Status: Resolved (3) Anemia Code(s): D64.9 - ANEMIA, UNSPECIFIED Status: Chronic (4) History of CVA with residual deficit Code(s): I69.30 - UNSPECIFIED SEQUELAE OF CEREBRAL INFARCTION Status: Chronic (5) Hyperkalemia Code(s): E87.5 - HYPERKALEMIA Status: Resolved (6) Hypertension Code(s): I10 - ESSENTIAL (PRIMARY) HYPERTENSION Status: Chronic Qualifiers: Hypertension type: essential hypertension Qualified Code(s): I10 - Essential (primary) hypertension (7) Sacral ulcer Code(s): L98.429 - NON-PRESSURE CHRONIC ULCER OF BACK WITH UNSPECIFIED SEVERITY Status: Chronic (8) Sepsis Code(s): A41.9 - SEPSIS, UNSPECIFIED ORGANISM Status: Resolved Qualifiers: Sepsis type: sepsis due to unspecified organism Sepsis acute organ dysfunction status: with acute organ dysfunction Severe sepsis acute organ dysfunction type: acute renal failure Severe sepsis shock status: without septic shock (9) UTI (urinary tract infection) Status: Acute Qualifiers: Urinary tract infection type: acute cystitis Hematuria presence: without hematuria Qualified Code(s): N30.00 - Acute cystitis without hematuria (10) Functional quadriplegia Code(s): R53.2 - FUNCTIONAL QUADRIPLEGIA Status: Chronic (11) Severe protein-calorie malnutrition Code(s): E43 - UNSPECIFIED SEVERE PROTEIN-CALORIE MALNUTRITION Status: Acute (12) FTT (failure to thrive) in adult Status: Acute - Plan Has multiple medical issues in addition to being bed bound, stage 4 sacral decubitus, chronic trach, 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 CM for help with transfer back to snf today, d/w and is cleared for dc. D/w her pcp ([phone]), and his PA NOA Hogan [phone]. The info below was confirmed to be true Per the brother, sustained massive cva in November of this year and had likely decompression done and since then has been on ventilator despite multiple attempts at weaning, she also got rehospitalized 2 more times for small cva's. She has started to open her eyes from 1 week now. await final culture results poor prognosis May dc anytime to medical resort in [place]
[2020-03-12 14:36] VITALS: BMI 31.4
[2020-03-12 14:41] LABS: Anion Gap 11 mmol/L (10-20); BUN (Urea Nitrogen) 20 mg/dL (7.0-18.7); Calc. Creatinine Clearance 93 mL/min (70-130); Calcium 9.6 mg/dL (7.8-10.44); Carbon Dioxide 25 mmol/L (22-29); Chloride 107 mmol/L (98-107); Estimated GFR-MDRD 71; Glucose 105 mg/dL (70-105); Potassium 3.9 mmol/L (3.5-5.1); Sodium 139 mmol/L (136-145)
[2020-03-13 04:09] LABS: Anion Gap 10 mmol/L (10-20); BUN (Urea Nitrogen) 14 mg/dL (7.0-18.7); Band 16 % (5-11); Calc. Creatinine Clearance 110 mL/min (70-130); Calcium 9.2 mg/dL (7.8-10.44); Carbon Dioxide 23 mmol/L (22-29); Chloride 106 mmol/L (98-107); Eosinophils 5 % (0-10); Estimated GFR-MDRD 86; Glucose 100 mg/dL (70-105); Hemoglobin 7.5 g/dL (12.0-16.0); Lymphocytes 16 % (21-51); MDiff Complete? YES; Magnesium 1.3 mg/dL (1.6-2.6); Mean Corpuscular HGB CONC 33.6 g/dL (32.0-36.0); Mean Corpuscular Hemoglobin 28.1 pg (27.0-31.0); Mean Corpuscular Volume 83.7 fL (78.0-98.0); Mean Platelet Volume 6.5 fL (7.4-10.4); Metamyelocyte 1 % (0-0); Monocytes 2 % (0-10); Neutrophil 59 % (42-75); Platelet Count 535 thou/uL (130-400); Platelet Morphology Comment Appears Increased; Potassium 3.9 mmol/L (3.5-5.1); RBC Distribution Width 17.1 % (11.5-14.5); Red Blood Cell (RBC) Count 2.66 mill/uL (4.20-5.40); Sodium 135 mmol/L (136-145); White Blood Cell (WBC) Count 13.4 thou/uL (4.8-10.8)
[2020-03-13] MEDS: Vancomycin 1 GM in Premix Bag 1 BAG IVPB SCH (06:32)
[2020-03-13] MEDS ORDERED: Magnesium Sulfate 4 GM in Sodium Chloride 0.9% 250 ML 250 ML IVPB SCH (07:00)
[2020-03-13 08:20] LABS: Actual Bicarbonate (HCO3a) 23.1 mEq/L (22-28); Base Excess (BEa) -0.2 mEq/L (-2.0 to +3.0); CO2 Tension 32.1 mmHg (35.0-45.0); Calcium, Ionized (arterial) 1.27 mmol/L (1.12-1.30); Carboxyhemoglobin (COHb) 0.2 gm% (0.0-3.0); Hemoglobin (Hb) 8.8 g/dL (12.0-16.0); O2 Tension (PaO2), arterial 99.9 mmHg (80.0-100.0); Potassium - ABG Lab 3.74 mmol/L (3.70-5.30); Puncture Site LRA; pH, Arterial 7.48 (7.35-7.45)
[2020-03-13 08:21] LABS: ALV-art Gradient 145.175 (0-20)
--- NOTE | 2020-03-13 08:47 | RAD ---
PORTABLE CHEST: DATE: 03/13/2020. PROVIDED CLINICAL HISTORY: Respiratory insufficiency. FINDINGS: Comparison 03/12/2020. Allowing for differences in positioning, significant interval change with respect to the prior examin ation. IMPRESSION: As above. POS: RAMIREZ
[2020-03-13] MEDS: Acetaminophen 325 MG TAB PO PRN (09:15)
[2020-03-13] MEDS: Cefepime 1 GM in Sodium Chloride 0.9% 100 ML IVPB SCH (09:15)
[2020-03-13] MEDS: Enoxaparin Sodium 30 MG/0.3 ML SYRINGE SC SCH (09:15)
[2020-03-13 11:18] VITALS: BP 151/84
[2020-03-13] MEDS ORDERED: Diazepam 10 MG/2 ML SYRINGE IVP SCH (12:45)
--- NOTE | 2020-03-13 13:17 | PDOC.HOSPP ---
- Subjective Encounter Date: 03/13/20 Encounter Time: 12:00 Subjective: awake, on vent, is not in distress - Objective Vital Signs & Weight: Vital Signs (12 hours) Temp Pulse Resp BP 03/13/20 11:16 101 H 151/84 H 03/13/20 10:00 38 H 03/13/20 08:04 97 145/97 H 03/13/20 08:00 98.4 F 44 H 03/13/20 06:00 46 H 03/13/20 04:00 98.9 F 47 H 03/13/20 03:51 104 H 164/118 H 03/13/20 02:00 40 H 03/13/20 01:28 99 174/101 H Weight Admit Weight 154 lb Weight 166 lb 7.184 oz Most Recent Monitor Data Heart Rate from ECG 65 NIBP 151/84 NIBP BP-Mean 106 Respiration from ECG 21 SpO2 100 I&O: 03/12/20 03/13/20 03/14/20 06:59 06:59 06:59 Intake Total 0902 4487 110 Output Total 2130 2967 750 Balance 4779 1520 -640 Result Diagrams: 03/13/20 03:38 03/13/20 03:38 Hospitalist ROS - Medication Medications: Active Medications Generic Name Dose Route Start Last Admin Trade Name Freq PRN Reason Stop Dose Admin Acetaminophen 650 mg 03/09/20 23:15 03/13/20 09:15 Tylenol PO 650 mg Q4H PRN Administration Headache/Fever/Mild Pain (1-3) Acetaminophen 650 mg 03/09/20 23:15 03/12/20 06:01 Tylenol [place] 650 mg Q4H PRN Administration Headache/Fever/Mild Pain (1-3) Diazepam 10 mg 03/13/20 12:45 03/13/20 13:04 Valium IVP 03/13/20 14:00 10 mg NOW GEOVANNA Administration Enoxaparin Sodium 30 mg 03/10/20 09:00 03/13/20 09:15 Lovenox SC 30 mg 0900 GEOVANNA Administration Cefepime HCl 1 gm/ Sodium 100 mls @ 200 mls/hr 03/11/20 09:00 03/13/20 09:15 Chloride IVPB 100 mls Q12HR GEOVANNA Administration Sodium Chloride 10 ml 03/13/20 09:00 03/13/20 09:00 Flush - Normal Saline IVF 10 ml Q12HR GEOVANNA Administration - Exam General Appearance: ill appearing Eye: PERRL, anicteric sclera ENT: no oropharyngeal lesions, moist mucosa Neck: no JVD Neck - other findings: trach+ Heart: RRR, no murmur Respiratory: no wheezes, no rales Gastrointestinal: soft, non-tender, non-distended, normal bowel sounds Gastrointestinal - other findings: peg+ Extremities: no edema Neurological - other findings: quadriparesis Hosp A/P (1) Acute and chronic respiratory failure ([id number]) Code(s): J96.20 - ACUTE AND CHR RESP FAILURE, UNSP W HYPOXIA OR HYPERCAPNIA Status: Acute Qualifiers: Respiratory failure complication: hypoxia and hypercapnia Qualified Code(s) : J96.21 - Acute and chronic respiratory failure with hypoxia; J96.22 - Acute and chronic respiratory failure with hypercapnia (2) SHANNEN (acute kidney injury) Code(s): N17.9 - ACUTE KIDNEY FAILURE, UNSPECIFIED Status: Resolved (3) Anemia Code(s): D64.9 - ANEMIA, UNSPECIFIED Status: Chronic (4) History of CVA with residual deficit Code(s): I69.30 - UNSPECIFIED SEQUELAE OF CEREBRAL INFARCTION Status: Chronic (5) Hyperkalemia Code(s): E87.5 - HYPERKALEMIA Status: Resolved (6) Hypertension Code(s): I10 - ESSENTIAL (PRIMARY) HYPERTENSION Status: Chronic Qualifiers: Hypertension type: essential hypertension Qualified Code(s): I10 - Essential (primary) hypertension (7) Sacral ulcer Code(s): L98.429 - NON-PRESSURE CHRONIC ULCER OF BACK WITH UNSPECIFIED SEVERITY Status: Chronic (8) Sepsis Code(s): A41.9 - SEPSIS, UNSPECIFIED ORGANISM Status: Resolved Qualifiers: Sepsis type: sepsis due to unspecified organism Sepsis acute organ dysfunction status: with acute organ dysfunction Severe sepsis acute organ dysfunction type: acute renal failure Severe sepsis shock status: without septic shock (9) UTI (urinary tract infection) Status: Acute Qualifiers: Urinary tract infection type: acute cystitis Hematuria presence: without hematuria Qualified Code(s): N30.00 - Acute cystitis without hematuria (10) Functional quadriplegia Code(s): R53.2 - FUNCTIONAL QUADRIPLEGIA Status: Chronic (11) Severe protein-calorie malnutrition Code(s): E43 - UNSPECIFIED SEVERE PROTEIN-CALORIE MALNUTRITION Status: Acute (12) FTT (failure to thrive) in adult Status: Acute - Plan Has multiple medical issues in addition to being bed bound, stage 4 sacral decubitus, chronic trach, 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 D/w her pcp ([phone]), and his PA NOA Hogan [phone]. The info below was confirmed to be true Per the brother, sustained massive cva in November of this year and had likely decompression done and since then has been on ventilator despite multiple attempts at weaning, she also got rehospitalized 2 more times for small cva's. She has started to open her eyes from 1 week now. await final culture results poor prognosis May dc anytime to medical resort in [place] if accepted
[2020-03-13 13:18] VITALS: TEMP 99.1
--- NOTE | 2020-03-13 14:43 | PRG ---
DATE OF SERVICE: 03/13/2020 SERVICE: Nephrology. SUBJECTIVE: A 50-year-old female with CVA associated with chronic respiratory failure on quadriparesis seen in followup for acute kidney injury and electrolyte derangements. General condition has improved. The patient is tolerating tube feeding. No nausea or vomiting. The patient is currently nonverbal. OBJECTIVE: VITAL SIGNS: Temperature 98.4, pulse 89, respiratory rate 26, SpO2 100% on mechanical ventilator with FiO2 40%. I and O in the last 24 hours showed total intake of 4487 with total output of 2967. GENERAL: Comfortable female, in no obvious distress. Afebrile. Anicteric. Acyanotic. The patient is nonverbal and mechanically ventilated. HEENT: Normocephalic, atraumatic. Left frontoparietal craniectomy noted. Oral mucosa is moist. NECK: Tracheostomy noted. CARDIOVASCULAR: Regular rhythm and rate. Normal heart sounds 1 and 2. RESPIRATORY: Ventilator transmitted breath sounds heard in all lung zones. The patient is tachypneic. GI: Full, soft, nontender with normal bowel sounds. Gastric tube noted. UROGENITAL: Luong catheter is in place draining urine. MUSCULOSKELETAL/EXTREMITIES: She has flexion deformity of both upper extremities noted. Muscular atrophy of lower extremities noted as well. No edema appreciated. Sacral decubitus ulcer with dressing noted. NEWS CLERK: Conscious and awake. The patient is nonverbal. DIAGNOSTIC DATA: CBC showed WBC count of 13.4, hemoglobin of 7.5, MCV of 83.7, platelet of 535. Chemistry showed sodium 135, potassium 3.9, chloride 106, CO2 of 23, BUN 14, creatinine 0.72, glucose 100, calcium 9.2, magnesium 1.3. ASSESSMENT: 1. Acute kidney injury: Due to hemodynamic factors related to sepsis and volume contraction/dehydration. Resolved. 2. Hyponatremia: Resolved with free water provision. Sodium is now down to 135, suggestive of excessive free water provision. 3. Hypomagnesemia: Recurrent. Magnesium is 1.3 today. 4. Metabolic acidosis: Due to acute kidney injury: Resolved. 5. Dehydration with hyponatremia resolved with crystalloid and free water. 6. Chronic respiratory failure related to prior cerebrovascular accident requiring tracheostomy and chronic ventilation. 7. Quadriparesis related to prior cerebrovascular accident. 8. Sepsis. PLAN: 1. We will replete serum magnesium with 4 g of magnesium sulfate. 2. We will recommend the escalation of free water flushes as well as discontinuation of dextrose infusion. We will, however, defer to lead cook for fluid management. 3. In view of resolution of renal failure and improvement of electrolyte derangements Nephrology will sign off at this time. Please call for any clarification or questions. Job ID: [id number]
--- NOTE | 2020-03-13 21:03 | PRG ---
DATE OF SERVICE: 03/13/2020 SUBJECTIVE: Ms. Solis was hemodynamically stable overnight. She has no complex ventilatory requirements. Her renal functions returned to be normal. OBJECTIVE: LUNGS: Clear. HEART: Regular rhythm. ABDOMEN: Soft. EXTREMITIES: Without edema or asymmetry. Apparently, her bed is available now. There is no reason that she should stay in the hospital. There is no isolation of any pathogens believe that she was truly septic. She does need decubitus care when she gets back to her long-term care hospital. She also needs to be adequately hydrated with adjustment of her daily liquid intake as she was severely intravascularly volume depleted in my opinion on presentation. She was felt to be stable to transfer back to her hospital in [place] by ground ambulance. Job ID: [id number]
[2020-03-14] MEDS ORDERED: Vancomycin HCl 1.25 GM in Sodium Chloride 0.9% 250 ML 250 ML IVPB SCH (06:00)
--- NOTE | 2020-03-14 14:51 | DIS ---
DATE OF ADMISSION: 03/09/2020 DATE OF DISCHARGE: 03/13/2020 DISCHARGE DISPOSITION: [facility] in [place], [place]. PRIMARY DISCHARGE DIAGNOSES: Acute on chronic respiratory failure with history of trach, on ventilator; pneumonia; acute kidney injury, resolved; chronic anemia; history of cerebrovascular accident with left hemiplegia, functional quadriplegia with contractures in all 4 extremities; initial hyperkalemia due to acute kidney injury, resolved; stage IV sacral decubitus ulcer, present on admission; hypertension; sepsis, resolved; urinary tract infection; severe protein malnutrition; failure to thrive. PROCEDURES DONE DURING HOSPITALIZATION: The patient has had serial chest x-rays done, which showed right middle lobe and lower lobe pneumonia. Ultrasound of kidneys showed minimal bilateral hydronephrosis. Urine culture grew Proteus mirabilis, 10,000 to 25,000 colony-forming units. Initial blood cultures x2, no growth. Sputum culture grew Providencia stuartii and Pseudomonas. Repeat blood cultures done on 03/11/2020 showed no growth. H and H 7.5 and 22 and platelet count 535. White count of 13. Discharge BUN and creatinine are 14 and 0.7. Admitting BUN and creatinine were 92 and 4.2, serum bicarb was 20 on the day of admission. Albumin was 2.7, procalcitonin 550. DISCHARGE MEDICATIONS: 1. Aspirin 81 mg p.o. daily. 2. Lipitor 40 mg p.o. q.h.s. 3. Pepcid 20 mg twice daily. 4. Ferrous sulfate 325 mg daily. 5. [place] p.r.n. for pain. 6. Lisinopril 2.5 mg twice daily. 7. Metoprolol 50 mg twice daily. 8. Cefepime and vancomycin for another 5 days. ALLERGIES: NO KNOWN DRUG ALLERGIES. INPATIENT CONSULTS: Dr. Mejia for Pulmonology and Dr. Dao for Nephrology. DISCHARGE PLAN: The patient to follow up with her primary care physician, Dr. Cooper at [facility] in [place], [place]. BRIEF COURSE DURING HOSPITALIZATION: The patient initially got admitted on the after she was transferred from [facility] for acute kidney injury, severe sepsis, and acute on chronic respiratory failure. The patient had sustained severe left hemiplegia with dysphagia and aphasia. She subsequently had a few more CVAs per my conversation with her primary care physician, Dr. Cooper. She essentially had functional quadriparesis with contractures of all 4 extremities prior to arrival. She was gently hydrated during her stay here and was placed on broad-spectrum IV antibiotics. The patient has responded well to above measures. Her renal function is back to normal. Her leukocytosis with sepsis is resolving. She needs to continue cefepime and vancomycin for another 4 days. I have spoken to Dr. Cooper's PA and given complete updates including 4 to 5 more days of IV antibiotics. Her overall prognosis is poor given severe neurologic decline with contractures and is vent dependent and has PEG feeding as well. She has static encephalopathy as well. Her twin brother was also given complete updates during her stay here. She is being discharged back on the ventilator on trach [facility]. A total of 35 minutes was spent on discharge plan. Please see a [id number] documentation for the day of discharge on [employer] ([place]). Job ID: [id number]
== END 2020-03-13 13:29 | DRG 871 ==
LOC: CCU 14:05
PROVIDERS: ADMIT Internal Medicine; ATTEND Internal Medicine
PROC: 5A1945Z Respiratory Ventilation, 24-96 Consecutive Hours (ICD-10-PCS; 2020-03-09)
PROC: 30233N1 Transfusion of Nonautologous Red Blood Cells into Peripheral Vein, Percutaneous Approach (ICD-10-PCS; principal; 2020-03-10)
DX: A41.9 Sepsis, unspecified organism (principal); L89.154 Pressure ulcer of sacral region, stage 4; J18.9 Pneumonia, unspecified organism; R53.2 Functional quadriplegia; E43 Unspecified severe protein-calorie malnutrition; J96.22 Acute and chronic respiratory failure with hypercapnia; J96.21 Acute and chronic respiratory failure with hypoxia; N17.9 Acute kidney failure, unspecified; G93.49 Other encephalopathy; N39.0 Urinary tract infection, site not specified; I69.354 Hemiplegia and hemiparesis following cerebral infarction affecting left non-dominant side; Z99.11 Dependence on respirator [ventilator] status; E87.0 Hyperosmolality and hypernatremia; E87.2 Acidosis; Z51.5 Encounter for palliative care; D64.9 Anemia, unspecified; E87.5 Hyperkalemia; B96.5 Pseudomonas (aeruginosa) (mallei) (pseudomallei) as the cause of diseases classified elsewhere; R13.10 Dysphagia, unspecified; R65.20 Severe sepsis without septic shock; I10 Essential (primary) hypertension; E83.42 Hypomagnesemia; D69.6 Thrombocytopenia, unspecified; F10.10 Alcohol abuse, uncomplicated; E86.9 Volume depletion, unspecified; E87.8 Other disorders of electrolyte and fluid balance, not elsewhere classified; E86.0 Dehydration; R62.7 Adult failure to thrive; Z93.0 Tracheostomy status; I69.391 Dysphagia following cerebral infarction; I69.320 Aphasia following cerebral infarction; Z93.1 Gastrostomy status; I69.328 Other speech and language deficits following cerebral infarction; I69.312 Visuospatial deficit and spatial neglect following cerebral infarction; Z74.01 Bed confinement status; Z68.32 Body mass index [BMI] 32.0-32.9, adult
CPT/HCPCS: 36415; 36416; 36430; 71045; 76770; 80048; 80053; 80202; 81001; 82274; 82570; 82805; 83540; 83550; 83605; 83735; 83930; 83935; 84100; 84145; 84156; 84300; 85025; 85027; 86850; 86870; 86900; 86901; 86905; 86922; 87040; 87070; 87077; 87081; 87086; 87186; 87205; 94003; J0692; J0696; J1650; J3360; J3370; J3475; J3490; J7050; P9016